=== PATIENT | female | born 2000 | race Native Hawaiian/Other Pacific Islander ===

== ENCOUNTER 2019-09-17 15:41 | Inpatient (IN) | payer MEDICAID ==
[2019-09-17 19:00] LABS: Basophils % (Auto) 0.2 % (0.0-1.8); Eosinophils % (Auto) 0.1 % (0.0-4.3); Hematocrit 34.3 % (30.3-42.9); Hemoglobin 11.2 gm/dl (10.1-14.3); Lymphocytes # (Auto) 1.5 K/mm3 (1.2-5.4); Lymphocytes % (Auto) 10.3 % (13.4-35.0); Mean Corpuscular HGB Conc 33 % (30-34); Mean Corpuscular Volume 77 fl (79-97); Monocytes # (Auto) 0.9 K/mm3 (0.0-0.8); Monocytes % (Auto) 5.9 % (0.0-7.3); Platelet Count 337 K/mm3 (140-440); Red Blood Count 4.48 M/mm3 (3.65-5.03); Red Cell Distribution Width 15.2 % (13.2-15.2)
[2019-09-17] MEDS: LACTATED RINGERS 1,000 ML IV SCH ×2 (19:00→20:26)
[2019-09-17] MEDS ORDERED: ePHEDrine SULFATE 50 MG/1 ML INJ ONE (19:39)
[2019-09-17] MEDS ORDERED: BUPIVACAINE/PF (0.25%) 2.5 MG/ML 10 ML VIAL INFILTRATI ONE (19:42)
[2019-09-17] MEDS ORDERED: fentaNYL 100 MCG/2 ML INJ ONE (19:42)
[2019-09-17] MEDS ORDERED: ePHEDrine SULFATE 50 MG/1 ML INJ IV PRN (20:00)
[2019-09-17] MEDS ORDERED: NALOXONE 2 MG/2 ML INJ IV PRN (20:00)
--- NOTE | 2019-09-17 20:00 | Anesthesia Consultation ---
Anesthesia Consult and Med Hx Date of service: 09/17/19 - Airway Anesthetic Teeth Evaluation: Good ROM Head & Neck: Adequate Mental/Hyoid Distance: Adequate Mallampati Class: Class II Intubation Access Assessment: Good - Pulmonary Exam CTA: Yes - Cardiac Exam Cardiac Exam: RRR - Pre-Operative Health Status ASA Pre-Surgery Classification: ASA2, Emergency Proposed Anesthetic Plan: Epidural - Pulmonary Hx Asthma: No - Cardiovascular System Hx Hypertension: No - Central Nervous System Hx Seizures: No Hx Psychiatric Problems: No - Endocrine Hx Hypothyroidism: No Hx Hyperthyroidism: No - Hematic Hx Anemia: No Hx Sickle Cell Disease: No - Other Systems Hx Alcohol Use: No
[2019-09-17] MEDS: fentaNYL-BUPIV 2 MCG/ML-0.125% 200 MCG/100 ML BAG EPIDURAL SCH (20:24)
[2019-09-18] MEDS: LACTATED RINGERS 1,000 ML IV SCH (00:11)
[2019-09-18] MEDS ORDERED: LIDOCAINE (2%) 20 MG/1 ML VIAL 20 ML MDV INFILTRATI ONE (03:05)
[2019-09-18] MEDS ORDERED: TERBUTALINE 1 MG/1 ML INJ IVP PRN (03:05)
[2019-09-18] MEDS ORDERED: MINERAL OIL 30 ML ORAL LIQD PO PRN (03:05)
[2019-09-18] MEDS ORDERED: TERBUTALINE 1 MG/1 ML INJ SUB-Q PRN (03:05)
[2019-09-18] MEDS: fentaNYL-BUPIV 2 MCG/ML-0.125% 200 MCG/100 ML BAG EPIDURAL SCH (03:15)
--- NOTE | 2019-09-18 03:39 | History and Physical Report ---
History of Present Illness Date of examination: 09/18/19 Date of admission: 09/17/19 15:42 Chief complaint: contractions History of present illness: This is a 19 yo at 40+3 weeks here for labor. patient was noted to be 5 cm. She is a patient of [facility]. GBS neg. Past History Past Medical History: no pertinent history Past Surgical History: no surgical history Family/Genetic History: diabetes Social history: no significant social history, single. denies: smoking, alcohol abuse, prescription drug abuse - Obstetrical History Expected Date of Delivery: 09/23/19 Actual Gestation: 39 Week(s) 2 Day(s) : 1 Para: 0 Hx # Term Pregnancies: 0 Number of Pregnancies: 0 Spontaneous Abortions: 0 Induced : 0 Number of Living Children: 0 Medications and Allergies Allergies Allergy/AdvReac Type Severity Reaction Status Date / Time No Known Allergies Allergy Verified 09/17/19 16:10 Home Medications Medication Instructions Recorded Confirmed Last Taken Type Vit-Fe Fumar-FA [ 1 tab PO QDAY 09/17/19 09/17/19 09/17/19 History Vitamin] 1 tab Active Meds: Active Medications Ephedrine Sulfate (Ephedrine Sulfate) 10 mg IV Q2M PRN PRN Reason: Hypotension Lactated Ringer's (Lactated Ringers) 1,000 mls @ 125 mls/hr IV DIRECT TRACIE Last Admin: 09/18/19 00:11 Dose: 125 mls/hr Documented by: Fentanyl/Bupivacaine/Sodium Chlor (Fentanyl-Bupiv 2 Mcg/Ml-0.125%) 200 mcg in 100 mls @ 12 mls/hr EPIDURAL TITR TRCAIE; Protocol Last Admin: 09/18/19 03:15 Dose: 12 mls/hr Documented by: Oxytocin/Sodium Chloride (Pitocin/Ns 30 Unit/500ml) 30 units in 500 mls @ 2 mls/hr IV TITR TRACIE; Protocol Oxytocin/Sodium Chloride (Pitocin/Ns 20 Unit/1000ml Drip) 20 units in 1,000 mls @ 125 mls/hr IV DIRECT TRACIE Mineral Oil (Mineral Oil) 30 ml PO QHS PRN PRN Reason: Constipation Naloxone HCl (Naloxone) 0.2 mg IV Q5M PRN PRN Reason: Respiratory sedation Terbutaline Sulfate (Brethine) 0.25 mg SUB-Q ONCE PRN PRN Reason: Hyperstimulation/Hypertonicity Terbutaline Sulfate (Brethine) 0.25 mg IVP ONCE PRN PRN Reason: Hyperstimulation/Hypertonicity Review of Systems All systems: negative - Vital Signs Vital signs: Vital Signs Pulse BP 110 H 135/75 09/17/19 16:09 09/17/19 16:09 Temp Pulse Resp BP Pulse Ox 97.5 F L 156 H 16 137/68 99 09/18/19 01:39 09/18/19 03:35 09/17/19 19:00 09/18/19 03:09 09/18/19 03:35 - Physical Exam Breasts: Positive: normal Cardiovascular: Regular rate, Normal S1 Lungs: Positive: Clear to auscultation, Normal air movement Abdomen: Positive: normal appearance, soft, normal bowel sounds. Negative: distention, tenderness, guarding Genitourinary (Female): Positive: normal external genitalia, normal perenium Vulva: both: normal Vagina: Positive: normal moisture Uterus: Positive: normal size, normal contour Anus/Rectum: Positive: normal perianal skin Extremities: Positive: normal Deep Tendon Reflex Grade: Normal +2 - Obstetrical FHR: category 1 Cervical Dilatation: 5 Cervical Effacement Percentage: 80 station: -2 Uterine Contraction Pattern: Regular Uterine Tone Measurement Phase: Contraction Uterine Contraction Intensity: Moderate Results Result Diagrams: 09/17/19 18:20 Abnormal lab results 09/17/19 Range/Units 18:20 WBC 14.9 H (4.5-11.0) K/mm3 MCV 77 L (79-97) fl MCH 25 L (28-32) pg Lymph % (Auto) 10.3 L (13.4-35.0) % [place] # 0.9 H (0.0-0.8) K/mm3 Seg Neutrophils % 83.5 H (40.0-70.0) % Seg Neutrophils # 12.4 H (1.8-7.7) K/mm3 All other labs normal. Assessment and Plan / A/P IUP 39+3 weeks Active labor GBS neg IVF, labs wxpect vaginal delivery
[2019-09-18] MEDS ORDERED: OXYTOCIN 20 UNIT/1000ML DRIP 20 UNITS/1,000 ML BAG IV SCH ×2 (04:00→05:00)
[2019-09-18] MEDS ORDERED: diphenhydrAMINE 25 MG CAP PO PRN (04:27)
[2019-09-18] MEDS ORDERED: WITCH HAZEL/ GLYCERIN PAD TP PRN (04:27)
[2019-09-18] MEDS ORDERED: ACETAMINOPHEN 325 MG TAB PO PRN (04:27)
[2019-09-18] MEDS ORDERED: PROMETHAZINE 25 MG RECT SUPP PR PRN (04:27)
[2019-09-18] MEDS ORDERED: KETOROLAC 30 MG/1 ML INJ IV PRN (04:27)
[2019-09-18] MEDS ORDERED: MAGNESIUM HYDROXIDE (MOM) ORAL LIQD UDC PO PRN (04:27)
[2019-09-18] MEDS ORDERED: oxyCODONE /ACETAMINOPHEN 5-325MG TAB PO PRN (04:27)
[2019-09-18] MEDS ORDERED: LANOLIN/ZINC/DIMETHICONE (LANSINOH) 7 GM TP PRN (04:27)
[2019-09-18] MEDS ORDERED: PROMETHAZINE 25 MG TAB PO PRN (04:27)
[2019-09-18] MEDS ORDERED: ONDANSETRON 4 MG/2 ML INJ IV PRN (04:27)
[2019-09-18] MEDS ORDERED: HYDROcodone/ACETAMINOPHEN 5-325 MG TAB PO PRN (04:27)
[2019-09-18] MEDS ORDERED: OXYTOCIN DRIP 30 UNITS/500 ML BAG IV SCH (04:30)
--- NOTE | 2019-09-18 04:33 | Procedure Note ---
OB Delivery Note - Delivery Date of Delivery: 09/18/19 Surgeon: MOSES DURAN Estimated blood loss: 200cc - Vaginal Delivery presentation: vertex Delivery position: OA Delivery induction: none Delivery monitor: external FHT, external uterine Route of delivery: Delivery placenta: spontaneous Delivery cord: 3 umbilical vessels Episiotomy: none Delivery laceration: none Anesthesia: epidural Delivery comments: Patient was noted to be C/C/0 and commenced to pushing a viable female infant 8 pounds and 3 oz at 0416. The baby placed on mothers chest with Peds team in room. The cord was clamped and cut after delay in cord clamping after 60sec. The placenta delivered intact at 0421 with 3 vessel cord. Survey of perineum revealed no lacerations. Apgars 8 and 9. EBL 300 cc. Patient tolerated procedrure well and bonding with baby. - A at 1 minute: 8 at 5 minutes: 9 Infant Gender: Female (8 pounds 3 oz)
[2019-09-18] MEDS: IBUPROFEN 600 MG TAB PO SCH ×3 (04:53→21:41)
[2019-09-18] MEDS: DOCUSATE SODIUM 100 MG CAP PO SCH ×2 (09:20→21:41)
[2019-09-18] MEDS: SENNOSIDES/DOCUSATE SODIUM 8.6/50 MG TAB PO SCH ×2 (09:21→21:41)
[2019-09-18] MEDS: PRENATAL VIT27-FE FUMARATE-FOLIC ACID VIT TAB PO SCH (09:21)
[2019-09-18 17:24] LABS: Hematocrit 29.4 % (30.3-42.9); Hemoglobin 9.9 gm/dl (10.1-14.3)
[2019-09-19] MEDS: IBUPROFEN 600 MG TAB PO SCH ×4 (00:20→20:54)
[2019-09-19] MEDS ORDERED: MEASLES, MUMPS & RUBELLA 12,500 UNIT/0.5 ML VACCINE SUB-Q ONE (04:27)
--- NOTE | 2019-09-19 04:54 | Post Anesthesia Evaluation ---
- Post Anesthesia Evaluation Patient Participated: Yes Airway Patent: Yes Stable Respiratory Function: Yes Nausea/Vomiting: No Temp > 96.8F: Yes Pain Manageable: Yes Adequeate Hydration: Yes Anesthesia Complications: No Block Receding Appropriately: Yes Patient on Ventilator: No
[2019-09-19] MEDS ORDERED: TETANUS,DIPH,PERTUSS(ACELL) VACCINE 0.5 ML SYRINGE IM ONE (06:00)
--- NOTE | 2019-09-19 08:23 | Progress Note ---
Assessment and Plan PPD1 s/p Acute anemia- ferrous sulfate Vital signs stable Breast feeding Discharge to home on PPD2 Subjective - Subjective Date of service: 09/19/19 Principal diagnosis: s/p Interval history: Pt is PPD1 s/p Patient reports: appetite normal, voiding normally, pain well controlled, ambulating normally [place]: doing well, nursing well Objective - Vital Signs Latest vital signs: Vital Signs Temp Pulse Resp BP BP Pulse Ox 09/19/19 05:29 18 09/19/19 00:00 98.8 F 74 18 116/62 09/18/19 21:41 18 09/18/19 19:30 98.6 F 66 18 121/78 09/18/19 16:04 97.7 F 85 20 120/62 92 09/18/19 11:51 98.0 F 92 H 20 109/59 97 Intake and Output 09/18/19 09/19/19 09/19/19 23:59 07:59 15:59 Intake Total 440 500 Output Total 800 Balance -360 500 Intake: Oral 440 200 Intake, Free Water 300 Output: Urine 800 Void 800 Other: Total, Intake Amount 200 200 Total, Output Amount 800 # Voids Void 1 1 - Exam Lungs: Present: Normal air movement Abdomen: Present: normal appearance, soft Uterus: Present: normal, firm, fundal height below umbilicus Extremities: Present: normal - Labs Labs: Abnormal lab results 09/18/19 Range/Units 16:42 Hgb 9.9 L (10.1-14.3) gm/dl Hct 29.4 L (30.3-42.9) %
--- NOTE | 2019-09-19 08:25 | Discharge Summary ---
Providers - Providers Date of Admission: 09/17/19 15:42 Date of discharge: 09/20/19 Attending physician: MOSES DURAN MD Primary care physician: MOSES DURAN MD Hospitalization Reason for admission: active labor Delivery: Episiotomy: none Laceration: none Other procedures: none complications: none Discharge diagnosis: IUP at term delivered baby: female Hospital course: Pt arrived in active labor and progressed to of viable female . Acute anemia noted. She met discharge criteria on PPD1. Condition at discharge: Good Disposition: DC-01 TO HOME OR SELFCARE Plan - Provider Discharge Summary Activity: routine, no sex for 6 weeks, no heavy lifting 4 weeks, no strenuous exercise Diet: routine Instructions: routine Additional instructions: [] Smoking cessation referral if applicable(refer to patient education folder for contact #) [] Refer to [facility]'s [facility] Booklet Call your doctor immediately for: * Fever > 100.5 * Heavy vaginal bleeding ( >1 pad per hour) * Severe persistent headache * Shortness of breath * Reddened, hot, painful area to leg or breast * Drainage or odor from incision. * Keep incision clean and dry at all times and follow doctor's instructions regarding bathing/showering - Follow up plan Follow up: ULISSES SANTAMARIA CNM [Advanced Practice Nurse] - 10/17/19 (Please call office to schedule an appointment.)
[2019-09-19] MEDS: SENNOSIDES/DOCUSATE SODIUM 8.6/50 MG TAB PO SCH ×2 (09:35→22:07)
[2019-09-19] MEDS: PRENATAL VIT27-FE FUMARATE-FOLIC ACID VIT TAB PO SCH (09:35)
[2019-09-19] MEDS: DOCUSATE SODIUM 100 MG CAP PO SCH ×2 (09:35→22:06)
[2019-09-20] MEDS: IBUPROFEN 600 MG TAB PO SCH ×4 (04:53→10:04)
[2019-09-20] MEDS: DOCUSATE SODIUM 100 MG CAP PO SCH (10:04)
[2019-09-20] MEDS: PRENATAL VIT27-FE FUMARATE-FOLIC ACID VIT TAB PO SCH (10:04)
[2019-09-20] MEDS: SENNOSIDES/DOCUSATE SODIUM 8.6/50 MG TAB PO SCH (10:04)
[2019-09-20] MEDS ORDERED: MEASLES, MUMPS & RUBELLA 12,500 UNIT/0.5 ML VACCINE SUB-Q ONE (12:00)
[2019-09-20 13:18] VITALS: BP 113/67
== END 2019-09-20 13:00 | disposition home or self-care (01) | DRG 775 ==
LOC: TRG 15:41 → LD 15:42 → TRG 15:42 → OBSVTOIN 15:42 → OB 09-18 06:23
PROVIDERS: ADMIT Obstetrics & Gynecology; ATTEND Obstetrics & Gynecology
PROC: 10E0XZZ Delivery of Products of Conception, External Approach (ICD-10-PCS; principal; 2019-09-18)
PROC: 3E0R3BZ Introduction of Anesthetic Agent into Spinal Canal, Percutaneous Approach (ICD-10-PCS; 2019-09-18)
PROC: 00HU33Z Insertion of Infusion Device into Spinal Canal, Percutaneous Approach (ICD-10-PCS; 2019-09-18)
PROC: 3E0134Z Introduction of Serum, Toxoid and Vaccine into Subcutaneous Tissue, Percutaneous Approach (ICD-10-PCS; 2019-09-19)
PROC: 3E0234Z Introduction of Serum, Toxoid and Vaccine into Muscle, Percutaneous Approach (ICD-10-PCS; 2019-09-20)
DX: O90.81 Anemia of the puerperium (principal); D64.89 Other specified anemias; Z37.0 Single live birth; Z83.3 Family history of diabetes mellitus; Z23 Encounter for immunization; Z3A.39 39 weeks gestation of pregnancy
CPT/HCPCS: 36415; 85014; 85018; 85025; 86850; 86900; 86901; 90471; 90707; 90715; G0378; J2590; J3010; J7120

== ENCOUNTER 2019-09-26 21:22 | Inpatient (IN) | payer MEDICAID ==
--- NOTE | 2019-09-26 22:23 | Event Note ---
ED Screening Note Date of service: 09/26/19 Time: 22:22 ED Screening Note: 19 y o female presents with fever and cough one week post This initial assessment/diagnostic orders/clinical plan/treatment(s) is/are subject to change based on patients health status, clinical progression and re- assessment by fellow clinical providers in the ED. Further treatment and workup at subsequent clinical providers discretion. Patient/guardian urged not to elope from the ED as their condition may be serious if not clinically assessed and managed. Initial orders include: cxr cbc
--- NOTE | 2019-09-26 23:02 | XRay Report ---
CHEST 2 VIEWS INDICATION: persistant cough and fever. COMPARISON: 01/02/2013. FINDINGS: Support devices: None. Heart: Within normal limits. Lungs/Pleura: No acute air space or interstitial disease. No significant pleural effusion. IMPRESSION: No acute findings. Signer Name: Cesar Urbina MD Signed: 09/26/2019 10:57 PM Workstation Name: [id number]
[2019-09-26] MEDS ORDERED: SODIUM CHLORIDE 0.9% 1000 ML 1,000 ML IV ONE (23:41)
[2019-09-26] MEDS ORDERED: fentaNYL 100 MCG/2 ML INJ IV ONE (23:41)
[2019-09-26] MEDS ORDERED: ONDANSETRON 4 MG/2 ML INJ IV ONE (23:41)
--- NOTE | 2019-09-26 23:46 | Emergency Department Report ---
HPI - General Chief Complaint: Fever Time Seen by Provider: 09/26/19 23:27 - HPI HPI: Room 42 The pt is a 19 y/o F p/w a cc of Fever. The pt is post- s/p 09/25/2019. The pt staes she has had a fever x 3 days. The pt measures a temp of 102F. The pt states she's had a cough productive of yellow sputum x 1-2 months. Pt admits to rhinnorhea. The pt states her left breast feels indurateds. The pt states her baby is breast and formula fed. Pt denies dysura but admits to hematuria. Pt gives her pain a score of 8/10 ED Past Medical Hx - Past Medical History Previous Medical History?: No - Surgical History Past Surgical History?: Yes Additional Surgical History: Right palm - Family History Family history: no significant - Social History Smoking Status: Never Smoker Substance Use Type: None (denies illicit drug use) - Medications Home Medications: Home Medications Medication Instructions Recorded Confirmed Last Taken Type Vit-Fe Fumar-FA [ 1 tab PO QDAY 09/17/19 09/17/19 09/17/19 History Vitamin] 1 tab Ferrous Sulfate [Ferrous Sulfate 324 mg PO BID #60 tablet. 09/19/19 Unknown Rx 324 MG] Ibuprofen [Motrin] 600 mg PO Q6H PRN #60 tablet 09/19/19 Unknown Rx ED Review of Systems ROS: Stated complaint: FEVER/CHILLS Other details as noted in HPI Constitutional: fever ENT: denies: throat pain Respiratory: cough Cardiovascular: denies: chest pain Endocrine: no symptoms reported Gastrointestinal: denies: abdominal pain Genitourinary: hematuria, other (breast pain). denies: dysuria Musculoskeletal: denies: back pain Neurological: denies: headache Physical Exam - Physical Exam Vital Signs: Vital Signs 09/26/19 09/26/19 09/26/19 21:46 22:19 22:23 Temperature 101.7 F H 101.7 F H 98.9 F Pulse Rate 123 H 125 H Respiratory 19 18 Rate Blood Pressure 132/70 132/70 O2 Sat by Pulse 97 97 Oximetry Laboratory Tests 09/26/19 09/26/19 09/27/19 Unknown Unknown 00:00 WBC 15.4 H RBC 5.27 H Hgb 13.1 Hct 40.4 MCV 77 L MCH 25 L MCHC 32 RDW 16.0 H Plt Count 459 H Lymph % (Auto) 8.5 L [place] % (Auto) 3.3 Eos % (Auto) 0.6 Baso % (Auto) 0.2 Lymph # 1.3 [place] # 0.5 Eos # 0.1 Baso # 0.0 Seg Neutrophils % 87.4 H Seg Neutrophils # 13.4 H Sodium Potassium Chloride Carbon Dioxide Anion Gap BUN Creatinine Estimated GFR BUN/Creatinine Ratio Glucose Calcium Total Bilirubin AST ALT Alkaline Phosphatase Total Protein Albumin Albumin/Globulin Ratio Urine Color Straw Urine Turbidity Slightly-cloudy Urine pH 6.0 Ur Specific [place] 1.006 Urine Protein <15 mg/dl Urine Glucose (UA) Neg Urine Ketones Neg Urine Blood Lg Urine Nitrite Neg Urine Bilirubin Neg Urine Urobilinogen < 2.0 Ur Leukocyte Esterase Lg Urine WBC (Auto) 117.0 H Urine RBC (Auto) 5.0 U Epithel Cells (Auto) 1.0 Urine Bacteria (Auto) 1+ Urine Mucus Few Influenza A (Rapid) Negative Influenza B (Rapid) Negative 09/27/19 00:00 WBC RBC Hgb Hct MCV MCH MCHC RDW Plt Count Lymph % (Auto) [place] % (Auto) Eos % (Auto) Baso % (Auto) Lymph # [place] # Eos # Baso # Seg Neutrophils % Seg Neutrophils # Sodium 136 L Potassium 3.8 Chloride 97.2 L Carbon Dioxide 22 Anion Gap 21 BUN 11 Creatinine 0.8 Estimated GFR > 60 BUN/Creatinine Ratio 14 Glucose 91 Calcium 9.5 Total Bilirubin 0.30 AST 20 ALT 37 Alkaline Phosphatase 165 H Total Protein 8.8 H Albumin 4.4 Albumin/Globulin Ratio 1.0 Urine Color Urine Turbidity Urine pH Ur Specific [place] Urine Protein Urine Glucose (UA) Urine Ketones Urine Blood Urine Nitrite Urine Bilirubin Urine Urobilinogen Ur Leukocyte Esterase Urine WBC (Auto) Urine RBC (Auto) U Epithel Cells (Auto) Urine Bacteria (Auto) Urine Mucus Influenza A (Rapid) Influenza B (Rapid) Physical Exam: GEN: WD WD F sitting on chair in NAD HEENT: EOMI, NCAT NECK: Trachea midline, no stridor CV: tachy. no m/r/g PULM: CTA bilat, no resp distress ABD: S/NT/ND +BS SKIN: No diaphoresis NEURO: GCS 15 MS: no evidence of injury ED Course Vital Signs 09/26/19 09/26/19 09/26/19 21:46 22:19 22:23 Temperature 101.7 F H 101.7 F H 98.9 F Pulse Rate 123 H 125 H Respiratory 19 18 Rate Blood Pressure 132/70 132/70 O2 Sat by Pulse 97 97 Oximetry - Reevaluation(s) Reevaluation #1: 09/27/19 03:24 Patient persistently tachycardic to the 120s despite 3 L IV fluids. Will admit the patient to the hospital for further treatment ED Medical Decision Making - Lab Data Result diagrams: 09/27/19 00:00 09/27/19 00:00 Laboratory Tests 09/26/19 09/26/19 09/27/19 Unknown Unknown 00:00 WBC 15.4 H RBC 5.27 H Hgb 13.1 Hct 40.4 MCV 77 L MCH 25 L MCHC 32 RDW 16.0 H Plt Count 459 H Lymph % (Auto) 8.5 L [place] % (Auto) 3.3 Eos % (Auto) 0.6 Baso % (Auto) 0.2 Lymph # 1.3 [place] # 0.5 Eos # 0.1 Baso # 0.0 Seg Neutrophils % 87.4 H Seg Neutrophils # 13.4 H Sodium Potassium Chloride Carbon Dioxide Anion Gap BUN Creatinine Estimated GFR BUN/Creatinine Ratio Glucose Calcium Total Bilirubin AST ALT Alkaline Phosphatase Total Protein Albumin Albumin/Globulin Ratio Urine Color Straw Urine Turbidity Slightly-cloudy Urine pH 6.0 Ur Specific [place] 1.006 Urine Protein <15 mg/dl Urine Glucose (UA) Neg Urine Ketones Neg Urine Blood Lg Urine Nitrite Neg Urine Bilirubin Neg Urine Urobilinogen < 2.0 Ur Leukocyte Esterase Lg Urine WBC (Auto) 117.0 H Urine RBC (Auto) 5.0 U Epithel Cells (Auto) 1.0 Urine Bacteria (Auto) 1+ Urine Mucus Few Influenza A (Rapid) Negative Influenza B (Rapid) Negative 09/27/19 00:00 WBC RBC Hgb Hct MCV MCH MCHC RDW Plt Count Lymph % (Auto) [place] % (Auto) Eos % (Auto) Baso % (Auto) Lymph # [place] # Eos # Baso # Seg Neutrophils % Seg Neutrophils # Sodium 136 L Potassium 3.8 Chloride 97.2 L Carbon Dioxide 22 Anion Gap 21 BUN 11 Creatinine 0.8 Estimated GFR > 60 BUN/Creatinine Ratio 14 Glucose 91 Calcium 9.5 Total Bilirubin 0.30 AST 20 ALT 37 Alkaline Phosphatase 165 H Total Protein 8.8 H Albumin 4.4 Albumin/Globulin Ratio 1.0 Urine Color Urine Turbidity Urine pH Ur Specific [place] Urine Protein Urine Glucose (UA) Urine Ketones Urine Blood Urine Nitrite Urine Bilirubin Urine Urobilinogen Ur Leukocyte Esterase Urine WBC (Auto) Urine RBC (Auto) U Epithel Cells (Auto) Urine Bacteria (Auto) Urine Mucus Influenza A (Rapid) Influenza B (Rapid) - Differential Diagnosis uti, pneumonia Critical care attestation.: If time is entered above; I have spent that time in minutes in the direct care of this critically ill patient, excluding procedure time. ED Disposition Clinical Impression: Pyelonephritis, Fever, Tachycardia Disposition: DC-09 OP ADMIT IP TO THIS HOSP Is pt being admited?: Yes Does the pt Need Aspirin: No Condition: Fair Time of Disposition: 03:25 (hospitalist page (Dr. Carol Ann Santana))
[2019-09-27 00:15] LABS: Basophils % (Auto) 0.2 % (0.0-1.8); Eosinophils # (Auto) 0.1 K/mm3 (0.0-0.4); Eosinophils % (Auto) 0.6 % (0.0-4.3); Hematocrit 40.4 % (30.3-42.9); Hemoglobin 13.1 gm/dl (10.1-14.3); Lymphocytes # (Auto) 1.3 K/mm3 (1.2-5.4); Lymphocytes % (Auto) 8.5 % (13.4-35.0); Mean Corpuscular HGB Conc 32 % (30-34); Mean Corpuscular Volume 77 fl (79-97); Monocytes # (Auto) 0.5 K/mm3 (0.0-0.8); Monocytes % (Auto) 3.3 % (0.0-7.3); Platelet Count 459 K/mm3 (140-440); Red Blood Count 5.27 M/mm3 (3.65-5.03)
[2019-09-27 00:39] LABS: Alanine Aminotransferase 37 units/L (7-56); Albumin 4.4 g/dL (3.9-5); BUN/Creatinine Ratio 14; Blood Urea Nitrogen 11 mg/dL (7-17); Calcium 9.5 mg/dL (8.4-10.2); Hemolysis Index 0
[2019-09-27 00:49] LABS: Bacteria,Urine 1+ /HPF (Negative); Bilirubin,Urine NEG (Negative); Blood,Urine LG (Negative); Color,Urine Straw (Yellow); Mucus,Urine FEW /HPF; Protein,Urine <15 mg/dL mg/dL (Negative); Urobilinogen,Urine < 2.0 mg/dL (<2.0)
[2019-09-27] MEDS ORDERED: levoFLOXacin 750 MG TAB PO ONE (01:30)
[2019-09-27] MEDS ORDERED: SODIUM CHLORIDE 0.9% 1000 ML 1,000 ML IV ONE ×2 (01:39→02:45)
[2019-09-27] MEDS ORDERED: IBUPROFEN 800 MG TAB PO ONE (02:04)
[2019-09-27] MEDS ORDERED: ONDANSETRON 4 MG/2 ML INJ IV PRN (04:10)
[2019-09-27] MEDS: cefTRIAXone/NS 1 GM/50 ML 1 GM/50 ML BAG IV SCH ×2 (04:15→18:04)
--- NOTE | 2019-09-27 04:19 | History and Physical Report ---
History of Present Illness Date of examination: 09/27/19 History of present illness: 19-year-old woman with no medical problems comes emergency room with complaints of fever 3 days. Complaining of a cough productive of green phlegm, status post delivery of baby last week. Complained of left breast is tender review Of Systems: Constitutional: no weight loss, fever, chills Ears, eyes, nose, mouth and throat: no nasal congestion, no nasal discharge, no sinus pressure, blurry vision, diplopia Neck: No neck pain or rigidity. Cardiovascular: No palpitations Respiratory: No cough, shortness of breath Gastrointestinal: No hematochezia, abdominal pain Genitourinary : no dysuria, frequency , hematuria Musculoskeletal: no muscle ache , joint pain Integumentary: no rash, no pruritis Neurological: no parathesias, focal weakness Endocrine: no cold or heat intolerance, no polyuria or polydipsia Hematologic/Lymphatic: no easy bruising, no easy bleeding, no gland swelling Allergic/Immunologic: no urticaria, no angioedema. PAST MEDICAL HISTORY:None PAST SURGICAL HISTORY: None FAMILY HISTORY:hypertension, diabetes SOCIAL HISTORY: Denies tobacco, drugs, alcohol Medications and Allergies Allergies Allergy/AdvReac Type Severity Reaction Status Date / Time No Known Allergies Allergy Verified 09/17/19 16:10 Home Medications Medication Instructions Recorded Confirmed Last Taken Type No Known Home Medications [No 09/27/19 09/27/19 Unknown History Reported Home Medications] Active Meds: Active Medications Acetaminophen (Tylenol) 650 mg PO Q4H PRN PRN Reason: Pain MILD(1-3)/Fever >100.5/VALERIO Enoxaparin Sodium (Enoxaparin) 40 mg SUB-Q QDAY TRCAIE Ceftriaxone Sodium (Rocephin/Ns 1 Gm/50 Ml) 1 gm in 50 mls @ 100 mls/hr IV Q24HR TRACIE; Protocol Sodium Chloride (Nacl 0.9% 1000 Ml) 1,000 mls @ 150 mls/hr IV DIRECT TRACIE Ondansetron HCl (Zofran) 4 mg IV Q8H PRN PRN Reason: Nausea And Vomiting Sodium Chloride (Sodium Chloride Flush Syringe 10 Ml) 10 ml IV BID TRACIE Sodium Chloride (Sodium Chloride Flush Syringe 10 Ml) 10 ml IV PRN PRN PRN Reason: LINE FLUSH Exam - Physical Exam Narrative exam: General Apperance: The patient sitting in bed no acute distress HEENT: Normocephalic, atraumatic. Pupils equally round and reactive to light, extraocular movement intact, and no sclericterus or JVD or thyromegaly or nodule. Neck supple, no carotid bruit, mucous membranes moist, no exudate or erythema Heart: S1-S2, regular is rhythm Lungs: Clear to auscultation bilaterally, breathing comfortable Abdomen: Positive bowel sounds, soft, nontender, nondistended, no organomegaly Extremities: No edema cyanosis clubbing Skin: no rash, nodule, warm and dry, left breast tender, no erthema Neuro:CN 2 -12 intact, motor/sensory intact, speech is fluent - Constitutional Vitals: Temp Pulse Resp BP Pulse Ox 100.8 F H 120 H 18 111/48 99 09/27/19 03:28 09/27/19 03:28 09/27/19 03:28 09/27/19 02:32 09/27/19 03:28 Results - Labs CBC & Chem 7: 09/28/19 07:18 09/28/19 07:18 Labs: Abnormal lab results 09/26/19 09/27/19 09/27/19 Range/Units Unknown 00:00 00:00 WBC 15.4 H (4.5-11.0) K/mm3 RBC 5.27 H (3.65-5.03) M/mm3 MCV 77 L (79-97) fl MCH 25 L (28-32) pg RDW 16.0 H (13.2-15.2) % Plt Count 459 H (140-440) K/mm3 Lymph % (Auto) 8.5 L (13.4-35.0) % Seg Neutrophils % 87.4 H (40.0-70.0) % Seg Neutrophils # 13.4 H (1.8-7.7) K/mm3 Sodium 136 L (137-145) mmol/L Chloride 97.2 L (98-107) mmol/L Alkaline Phosphatase 165 H (35-129) units/L Total Protein 8.8 H (6.3-8.2) g/dL Urine WBC (Auto) 117.0 H (0.0-6.0) /HPF - Imaging and Cardiology Chest x-ray: report reviewed Assessment and Plan Assessment Urinary tract infection Tender left breast, Plan Admit Start IV fluids, IV Rocephin, follow cultures DVT prophalaxis, frequent breast pumping, no mastitis
[2019-09-27] MEDS: SODIUM CHLORIDE 0.9% 1000 ML 1,000 ML IV SCH ×3 (04:20→23:45)
[2019-09-27] MEDS: ENOXAPARIN 40 MG/0.4 ML INJ SUB-Q SCH (10:00)
[2019-09-27] MEDS: ACETAMINOPHEN 325 MG TAB PO PRN ×3 (11:56→23:41)
--- NOTE | 2019-09-27 17:58 | Event Note ---
Date: 09/27/19 Patient stable COnt IV abx Possible discharge tomorrow on po abx
[2019-09-28 07:38] LABS: Basophils % (Auto) 0.6 % (0.0-1.8); Eosinophils # (Auto) 0.1 K/mm3 (0.0-0.4); Eosinophils % (Auto) 1.4 % (0.0-4.3); Hematocrit 32.5 % (30.3-42.9); Hemoglobin 10.7 gm/dl (10.1-14.3); Lymphocytes # (Auto) 1.4 K/mm3 (1.2-5.4); Lymphocytes % (Auto) 18.8 % (13.4-35.0); Mean Corpuscular HGB Conc 33 % (30-34); Mean Corpuscular Volume 77 fl (79-97); Monocytes # (Auto) 0.6 K/mm3 (0.0-0.8); Monocytes % (Auto) 7.9 % (0.0-7.3); Platelet Count 302 K/mm3 (140-440); Red Blood Count 4.22 M/mm3 (3.65-5.03); Red Cell Distribution Width 15.8 % (13.2-15.2)
[2019-09-28 08:03] LABS: BUN/Creatinine Ratio 10; Blood Urea Nitrogen 5 mg/dL (7-17); Calcium 8.4 mg/dL (8.4-10.2); Hemolysis Index 21
[2019-09-28] MEDS: SODIUM CHLORIDE 0.9% 1000 ML 1,000 ML IV SCH (08:54)
[2019-09-28] MEDS: ENOXAPARIN 40 MG/0.4 ML INJ SUB-Q SCH (10:08)
[2019-09-28] MEDS: cefTRIAXone/NS 1 GM/50 ML 1 GM/50 ML BAG IV SCH (10:08)
--- NOTE | 2019-09-28 15:08 | Progress Note ---
Assessment and Plan Assessment and plan: -- UTI: Emperic antibiotic f/u culture, cultures negative to date supportive care --SIRS present on admission with fever, --Leukocytosis and tachycardia, due to UTI,monitor --Acute Bronchitis: Cough medicine,supportive care --DVT prophylaxis: Lovenox Monitor closely and adjust management as needed Possible discharge in 1-2 days if stable History Interval history: Patient seen and examined,medical records reviewed Patient in mild distress Urinary tract infection on antibiotics Vital signs noted Hospitalist Physical - Constitutional Vitals: Temp Pulse Resp BP Pulse Ox 98.1 F 75 19 118/72 99 09/28/19 12:15 09/28/19 12:15 09/28/19 12:15 09/28/19 12:15 09/28/19 14:29 General appearance: Present: mild distress, well-nourished, obese - EENT Eyes: Present: PERRL, EOM intact - Neck Neck: Present: supple, normal ROM - Respiratory Respiratory effort: normal Respiratory: bilateral: diminished, negative: rales, rhonchi, wheezing - Cardiovascular Rhythm: regular Heart Sounds: Present: S1 & S2 - Extremities Extremities: no ischemia, No edema - Abdominal General gastrointestinal: soft, non-tender, non-distended, normal bowel sounds - Integumentary Integumentary: Present: clear, warm - Psychiatric Psychiatric: appropriate mood/affect, cooperative - Neurologic Neurologic: CNII-XII intact, moves all extremities Results - Labs CBC & Chem 7: 09/28/19 07:18 09/28/19 07:18 Labs: Laboratory Last Values WBC 7.5 K/mm3 (4.5-11.0) 09/28/19 07:18 RBC 4.22 M/mm3 (3.65-5.03) 09/28/19 07:18 Hgb 10.7 gm/dl (10.1-14.3) 09/28/19 07:18 Hct 32.5 % (30.3-42.9) D 09/28/19 07:18 MCV 77 fl (79-97) L 09/28/19 07:18 MCH 25 pg (28-32) L 09/28/19 07:18 MCHC 33 % (30-34) 09/28/19 07:18 RDW 15.8 % (13.2-15.2) H 09/28/19 07:18 Plt Count 302 K/mm3 (140-440) 09/28/19 07:18 Lymph % (Auto) 18.8 % (13.4-35.0) 09/28/19 07:18 [place] % (Auto) 7.9 % (0.0-7.3) H 09/28/19 07:18 Eos % (Auto) 1.4 % (0.0-4.3) 09/28/19 07:18 Baso % (Auto) 0.6 % (0.0-1.8) 09/28/19 07:18 Lymph # 1.4 K/mm3 (1.2-5.4) 09/28/19 07:18 Dent # 0.6 K/mm3 (0.0-0.8) 09/28/19 07:18 Eos # 0.1 K/mm3 (0.0-0.4) 09/28/19 07:18 Baso # 0.0 K/mm3 (0.0-0.1) 09/28/19 07:18 Seg Neutrophils % 71.3 % (40.0-70.0) H 09/28/19 07:18 Seg Neutrophils # 5.4 K/mm3 (1.8-7.7) 09/28/19 07:18 Sodium 140 mmol/L (137-145) 09/28/19 07:18 Potassium 3.7 mmol/L (3.6-5.0) 09/28/19 07:18 Chloride 105.9 mmol/L (98-107) 09/28/19 07:18 Carbon Dioxide 20 mmol/L (22-30) L 09/28/19 07:18 Anion Gap 18 mmol/L 09/28/19 07:18 BUN 5 mg/dL (7-17) L 09/28/19 07:18 Creatinine 0.5 mg/dL (0.7-1.2) L 09/28/19 07:18 Estimated GFR > 60 ml/min 09/28/19 07:18 BUN/Creatinine Ratio 10 % 09/28/19 07:18 Glucose 95 mg/dL (65-100) 09/28/19 07:18 Calcium 8.4 mg/dL (8.4-10.2) 09/28/19 07:18 Total Bilirubin 0.30 mg/dL (0.1-1.2) 09/27/19 00:00 AST 20 units/L (5-40) 09/27/19 00:00 ALT 37 units/L (7-56) 09/27/19 00:00 Alkaline Phosphatase 165 units/L (35-129) H 09/27/19 00:00 Total Protein 8.8 g/dL (6.3-8.2) H 09/27/19 00:00 Albumin 4.4 g/dL (3.9-5) 09/27/19 00:00 Albumin/Globulin Ratio 1.0 % 09/27/19 00:00 Urine Color Straw (Yellow) 09/26/19 Unknown Urine Turbidity Slightly-cloudy (Clear) 09/26/19 Unknown Urine pH 6.0 (5.0-7.0) 09/26/19 Unknown Ur Specific [place] 1.006 (1.003-1.030) 09/26/19 Unknown Urine Protein <15 mg/dl mg/dL (Negative) 09/26/19 Unknown Urine Glucose (UA) Neg mg/dL (Negative) 09/26/19 Unknown Urine Ketones Neg mg/dL (Negative) 09/26/19 Unknown Urine Blood Lg (Negative) 09/26/19 Unknown Urine Nitrite Neg (Negative) 09/26/19 Unknown Urine Bilirubin Neg (Negative) 09/26/19 Unknown Urine Urobilinogen < 2.0 mg/dL (<2.0) 09/26/19 Unknown Ur Leukocyte Esterase Lg (Negative) 09/26/19 Unknown Urine WBC (Auto) 117.0 /HPF (0.0-6.0) H 09/26/19 Unknown Urine RBC (Auto) 5.0 /HPF (0.0-6.0) 09/26/19 Unknown U Epithel Cells (Auto) 1.0 /HPF (0-13.0) 09/26/19 Unknown Urine Bacteria (Auto) 1+ /HPF (Negative) 09/26/19 Unknown Urine Mucus Few /HPF 09/26/19 Unknown Influenza A (Rapid) Negative (Negative) 09/26/19 Unknown Influenza B (Rapid) Negative (Negative) 09/26/19 Unknown Active Medications - Current Medications Current Medications: Generic Name Dose Route Start Last Admin Trade Name Freq PRN Reason Stop Dose Admin Acetaminophen 650 mg 09/27/19 04:10 09/27/19 23:41 Tylenol PO 650 mg Q4H PRN Administration Pain MILD(1-3)/Fever >100.5/VALERIO Enoxaparin Sodium 40 mg 09/27/19 10:00 09/28/19 10:08 Enoxaparin SUB-Q 40 mg QDAY TRACIE Administration Ceftriaxone Sodium 1 gm in 50 mls @ 100 mls/hr 09/27/19 03:55 09/28/19 10:08 Rocephin/Ns 1 Gm/50 Ml IV 100 mls/hr Q24HR TRACIE Administration Protocol Sodium Chloride 1,000 mls @ 150 mls/hr 09/27/19 04:00 09/28/19 08:54 Nacl 0.9% 1000 Ml IV 150 mls/hr DIRECT TRACIE Administration Ondansetron HCl 4 mg 09/27/19 04:10 Zofran IV Q8H PRN Nausea And Vomiting Sodium Chloride 10 ml 09/27/19 10:00 09/28/19 10:08 Sodium Chloride Flush Syringe 10 Ml IV 10 ml BID TRACIE Administration Sodium Chloride 10 ml 09/27/19 04:10 09/27/19 21:44 Sodium Chloride Flush Syringe 10 Ml IV 10 ml PRN PRN Administration LINE FLUSH Nutrition/Malnutrition Assess - Dietary Evaluation Nutrition/Malnutrition Findings: Nutrition Notes Start: 09/27/19 10:17 Freq: Status: Active Protocol: Document 09/28/19 11:01 AP (Rec: 09/28/19 11:16 AP [id number]) Co-Sign 09/28/19 11:01 LM Nutrition Notes Need for Assessment generated from: government operations consultant,MST Initial or Follow up Reassessment Other Pertinent Diagnosis Pyelonephritis Current Diet Regular Labs/Tests Reviewed Pertinent Medications Reviewed Height 5 ft 4 in Weight 102.1 kg [place] Body Weight (kg) 54.54 BMI 38.6 Weight Status Obese Subjective/Other Information F/U for PO/ONS intakes. Pt stated she had a hotdog and pizza for dinner last night and that she is eating and feeling better overall. Pt stated she doesn't care for Ensure will d/c. Percent of energy/protein needs met: 100%/100% Burn Absent Trauma Absent Current % PO Good (75-100%) Minimum of two criteria No physical signs of malnutrition #1 Diagnosis Progress(for reassessment Resolved documentation) Nutrition Intervention Revisit per MD consult or patient Sign Off request:
--- NOTE | 2019-09-28 15:53 | Consultation ---
History of Present Illness - Reason for Consult Consult date: 09/28/19 post fever Requesting physician: GILMER POWERS - History of Present Illness IUP 39+3 weeks Active labor GBS neg 19 y/o female with no medical history s/p recent normal vaginal delivery on 09/18/2019 admitted on 09/27/2019 due to 3-day history of weakness and fever associated with chills. She is . Denies any breast induration or erythema. Denies purulent vaginal discharge, urinary symptoms, N/V/D or abdominal pain. Reports a cough for 3 weeks with green sputum production, cough started aprox 2 weeks before delivery. Denies any recent sick contact. denies any recent sore throat, runny nose. In the ED, temp 101.7, HR 123, WBC 15.4. UA with 117 wbc and large leukocytes esterase. Blood culture 09/27/2019 no growth. ID consulted for fever. Review of Systems: Bold if positive, otherwise negative General: fevers, chills, body aches HEENT: visual disturbance, diplopia, eye pain Respiratory: cough, sputum, hemoptysis, shortness of breath Cardiovascular: chest pain, syncope Gastrointestinal: nausea, vomiting, diarrhea, abdominal pain Genitourinary: dysuria, hematuria, flank pain Musculoskeletal: neck pain, back pain, joint pain, edema Neurologic: headaches, seizures Hematologic: easy bruising or bleeding Endocrine: night sweats, acute weight loss Skin: rash, jaundice, redness Psychiatric: suicidal, homicidal ideation Medications and Allergies Allergies Allergy/AdvReac Type Severity Reaction Status Date / Time No Known Allergies Allergy Verified 09/17/19 16:10 Home Medications Medication Instructions Recorded Confirmed Last Taken Type No Known Home Medications [No 09/27/19 09/27/19 Unknown History Reported Home Medications] Active Meds: Active Medications Acetaminophen (Tylenol) 650 mg PO Q4H PRN PRN Reason: Pain MILD(1-3)/Fever >100.5/VALERIO Last Admin: 09/27/19 23:41 Dose: 650 mg Documented by: Enoxaparin Sodium (Enoxaparin) 40 mg SUB-Q QDAY [facility] Last Admin: 09/28/19 10:08 Dose: 40 mg Documented by: Ceftriaxone Sodium (Rocephin/Ns 1 Gm/50 Ml) 1 gm in 50 mls @ 100 mls/hr IV Q24HR TRACIE; Protocol Last Admin: 09/28/19 10:08 Dose: 100 mls/hr Documented by: Sodium Chloride (Nacl 0.9% 1000 Ml) 1,000 mls @ 150 mls/hr IV DIRECT TRACIE Last Admin: 09/28/19 08:54 Dose: 150 mls/hr Documented by: Ondansetron HCl (Zofran) 4 mg IV Q8H PRN PRN Reason: Nausea And Vomiting Sodium Chloride (Sodium Chloride Flush Syringe 10 Ml) 10 ml IV BID TRACIE Last Admin: 09/28/19 10:08 Dose: 10 ml Documented by: Sodium Chloride (Sodium Chloride Flush Syringe 10 Ml) 10 ml IV PRN PRN PRN Reason: LINE FLUSH Last Admin: 09/27/19 21:44 Dose: 10 ml Documented by: Physical Examination - Physical Exam Narrative exam: Constitutional: Alert, cooperative. No acute distress Head, Ears, Nose: Normocephalic, atraumatic. External ears, nose normal Eyes: Conjunctivae/corneas clear. No icterus. No ptosis. Neck: Supple, no meningeal signs Oral: dentition fair, no thrush Cardiovascular: S1, S2 normal. Respiratory: Good air entry, clear to auscultation bilaterally GI: Soft, non-tender; uterus Musculoskeletal: No pedal edema, no cyanosis. b/l leg wounds Skin: no rash Hem/Lymphatic: No palpable cervical or supraclavicular nodes. No lymphangitis Psych: Mood ok. Affect normal Neurological: Awake, alert, oriented. paraplegic - Constitutional Vitals: Vital Signs Temp Pulse Resp BP Pulse Ox 98.1 F 75 19 118/72 99 09/28/19 12:15 09/28/19 12:15 09/28/19 12:15 09/28/19 12:15 09/28/19 14:29 Temperature -Last 24 Hours Temperature 98.1 F Temperature 98.6 F Temperature 102.8 F Temperature 98.1 F Temperature 102.9 F Results - Labs CBC & Chem 7: 09/28/19 07:18 09/28/19 07:18 Labs: Abnormal lab results 09/28/19 09/28/19 Range/Units 07:18 07:18 MCV 77 L (79-97) fl MCH 25 L (28-32) pg RDW 15.8 H (13.2-15.2) % [place] % (Auto) 7.9 H (0.0-7.3) % Seg Neutrophils % 71.3 H (40.0-70.0) % Carbon Dioxide 20 L (22-30) mmol/L BUN 5 L (7-17) mg/dL Creatinine 0.5 L (0.7-1.2) mg/dL Assessment and Plan Cultures: Blood culture 09/23/2019 no growth so far Assessment: 19 y/o female with no medical history s/p recent normal vaginal delivery on 09/18/2019 admitted on 09/27/2019 due to 3-day history of weakness and fever associated with chills and 3 weeks of cough: 1) SIRS present on admission with fever, leukocytosis and tachycardia, etiology UTI +/- bronchitis. No evidence of pneumonia on CXR. 2) UTI: urine culture not available 3) Cough: ? influenza, ? post influenza, atypical mycoplasma/chlamydia lung infection. Influenza antigen is negative Recs: f/u urine culture continue ceftriaxone 2 gm IV q day add azithromycin 500 mg IV q day check Influenza PCR as influenza antigen has high false negative add tamiflu monitor fever anticipate to d/c on ceftin 500 mg po bid and azithromycin 500 mg po qday total 7 days Will follow. Thanks for consultation Marlin Steele MD Infectious Diseases Sample [facility] ([facility] M [phone] O [phone]
[2019-09-28] MEDS ORDERED: cefTRIAXone/NS 2 GM/100 ML 2 GM/100 ML BAG IV SCH (17:00)
[2019-09-28] MEDS: AZITHROMYCIN 500 MG in SODIUM CHLORIDE 0.9% 250ML 250 ML IV SCH (18:24)
[2019-09-28] MEDS: OSELTAMIVIR 75 MG CAP PO SCH (21:15)
[2019-09-29] MEDS: SODIUM CHLORIDE 0.9% 1000 ML 1,000 ML IV SCH (04:42)
[2019-09-29] MEDS ORDERED: guaiFENesin 100 MG/5 ML ORAL LIQD PO PRN (04:57)
[2019-09-29] MEDS: OSELTAMIVIR 75 MG CAP PO SCH (09:41)
[2019-09-29] MEDS: ENOXAPARIN 40 MG/0.4 ML INJ SUB-Q SCH (09:41)
[2019-09-29] MEDS: AZITHROMYCIN 500 MG in SODIUM CHLORIDE 0.9% 250ML 250 ML IV SCH (09:42)
[2019-09-29] MEDS ORDERED: cefTRIAXone/NS 2 GM/100 ML 2 GM/100 ML BAG IV SCH (10:00)
[2019-09-29 12:03] VITALS: BP 119/79
--- NOTE | 2019-09-29 13:40 | Discharge Summary ---
Providers - Providers Date of Admission: 09/27/19 05:12 Date of discharge: 09/29/19 Attending physician: GILMER POWERS 09/28/19 08:48 Consult to Physician [CONS] Routine Comment: Consulting Provider: TYSHAWN POON Physician Instructions: Reason For Exam: persistant fever/post Primary care physician: MANPOWER DEVELOPMENT ADVISOR Hospitalization Reason for admission: fever, cough, infection Condition: Fair Pertinent studies: Chest x-ray; no acute abnormality Hospital course: 19 y/o female with no medical history s/p recent normal vaginal delivery on 09/18/2019 admitted on 09/27/2019 due to 3-day history of weakness and fever associated with chills. She is . Denies any breast induration or erythema. Denies purulent vaginal discharge, urinary symptoms, N/V/D or abdominal pain. Reports a cough for 3 weeks with green sputum production, cough started aprox 2 weeks before delivery. Denies any recent sick contact. denies any recent sore throat, runny nose. In the ED, temp 101.7, Patient was empirically treated with antibiotics for acute bronchitis and urinary tract infection, influenza a and B are negative Evaluated by infectious diseases, medications optimized Today patient is comfortable in no new complaints vital signs stable Afebrile, alert awake oriented 3, Physical examination is unremarkable Clear to ID for discharge on oral antibiotics Follow-up plan medications position/CERTIFIED NURSING ASSISTANT and ID per scheduled Patient is stable at discharge Discharge diagnosis: -- UTI: Emperic antibiotic cultures negative to date supportive care Discharge on oral antibiotics recommended by ID --SIRS present on admission with fever, --Leukocytosis and tachycardia, due to UTI,/acute bronchitis --Acute Bronchitis: Cough medicine,supportive care --DVT prophylaxis: Lovenox Stable at discharge Disposition: DC-01 TO HOME OR SELFCARE Time spent for discharge: 32 min Core Measure Documentation - Palliative Care Palliative Care/ Comfort Measures: Not Applicable - Core Measures Any of the following diagnoses?: none Exam - Constitutional Vitals: Temp Pulse Resp BP Pulse Ox 98.4 F 62 16 119/79 98 09/29/19 11:59 09/29/19 11:59 09/29/19 11:59 09/29/19 11:59 09/29/19 11:59 General appearance: Present: no acute distress, well-nourished - EENT Eyes: Present: PERRL, EOM intact - Neck Neck: Present: supple, normal ROM - Respiratory Respiratory effort: normal Respiratory: bilateral: diminished, negative: rales, rhonchi, wheezing - Cardiovascular Rhythm: regular Heart Sounds: Present: S1 & S2 - Extremities Extremities: no ischemia, No edema - Abdominal General gastrointestinal: Present: soft, non-tender, non-distended, normal bowel sounds - Integumentary Integumentary: Present: clear, warm - Musculoskeletal Musculoskeletal: strength equal bilaterally - Psychiatric Psychiatric: appropriate mood/affect, cooperative - Neurologic Neurologic: CNII-XII intact, moves all extremities Plan Activity: advance as tolerated Diet: regular Additional Instructions: Advised to see CERTIFIED NURSING ASSISTANT per schedule as needed Follow up with: PRIMARY CARE, [Primary Care Provider] - 3-5 Days GERTRUDIS WOODARD MD [Staff Physician] - 7 Days Prescriptions: cefUROXime [Ceftin] 500 mg PO Q12H 7 Days #14 tablet Oseltamivir [Tamiflu] 75 mg PO BID #8 capsule Azithromycin [Zithromax TAB] 500 mg PO QDAY #7 tablet
== END 2019-09-29 15:44 | disposition home or self-care (01) | DRG 776 ==
LOC: ED 21:22 → INTOOBSV 09-27 05:12 → OBSVTOIN 09-27 05:12 → 3A 09-27 05:12
PROVIDERS: ADMIT Internal Medicine; ATTEND Internal Medicine
DX: O86.21 Infection of kidney following delivery (principal); O99.53 Diseases of the respiratory system complicating the puerperium; O90.89 Other complications of the puerperium, not elsewhere classified; J20.9 Acute bronchitis, unspecified; R65.10 Systemic inflammatory response syndrome (SIRS) of non-infectious origin without acute organ dysfunction; Z82.49 Family history of ischemic heart disease and other diseases of the circulatory system; Z83.3 Family history of diabetes mellitus
CPT/HCPCS: 36415; 71046; 80048; 80053; 81001; 85025; 87040; 87086; 87400; G0378; 87502; J0456; J0696; J1650; J2405; J3010; J7030; J7050